=== PATIENT | male | born 1955 | race Caucasian/White ===

== ENCOUNTER 2020-12-20 12:13 | Inpatient (IN) ==
[2020-12-20] MEDS ORDERED: 0.9 % Sodium Chloride 1,000 ML IVC ONE (12:19)
[2020-12-20] MEDS ORDERED: *HR* Ticagrelor 90 MG TABLET PO ONE ×2 (12:26→19:00)
[2020-12-20] MEDS ORDERED: Aspirin 325 MG TABLET PO ONE (12:26)
[2020-12-20] MEDS ORDERED: *HR* Heparin 5,000 UNIT/ML VIAL IVP ONE ×2 (12:28→19:03)
[2020-12-20] MEDS ORDERED: *HR* Metoprolol 5 MG/5 ML VIAL IVP ONE (12:29)
[2020-12-20 12:33] LABS: Basophils % 0.2 %; Hematocrit 45.9 % (37.5-50.1); Hemoglobin 15.4 g/dL (12.9-16.9); Immature Granulocytes % 0.8 % (0-4); Lymphocytes # 0.4 K/mcL (0.6-4.6); Lymphocytes % 2.6 %; Mean Corpuscular HGB Conc 33.6 g/dL (31.6-35.5); Mean Corpuscular Hemoglobin 31.8 pg (28.0-33.3); Mean Corpuscular Volume 94.6 fL (83.0-100.0); Mean Platelet Volume 11.1 fL (9.4-12.4); Monocytes # 0.8 K/mcL (0.0-1.3); Monocytes % 5.3 %; Neutrophils # 14.5 K/mcL (1.6-8.9); Platelet Count 323 K/mcL (140-400); Red Blood Count 4.85 M/mcL (4.19-5.50); Red Cell Distribution Width 13.3 % (11.5-14.5); Segmented Neutrophils % 91.1 %; White Blood Count 15.9 K/mcL (4.3-11.1)
[2020-12-20 12:39] LABS: INR 1.3; Prothrombin Time 14.8 Seconds (9.4-12.1)
[2020-12-20 12:42] LABS: Activated Partial Thrombo Time 23.2 Seconds (26.0-36.0)
[2020-12-20 12:56] LABS: BUN/Creatinine Ratio 33 (6-26); Blood Urea Nitrogen 80 mg/dL (8-23); Calcium 9.4 mg/dL (8.6-10.3); Carbon Dioxide 11 mEq/L (23-29); Chloride 80 mEq/L (98-107); Magnesium 2.6 mg/dL (1.6-2.6); Potassium 4.2 mEq/L (3.5-5.1); Sodium 124 mEq/L (136-145); eGFR For African Americans 33 (> 60); eGFR For Non-African Americans 28 (> 60)
[2020-12-20] MEDS ORDERED: *HR* Midazolam HCl 2 MG/2 ML VIAL ONE (13:07)
[2020-12-20] MEDS ORDERED: Tirofiban 12.5 MG/250ML 12.5 MG/250 ML BAG ONE (13:25)
[2020-12-20 13:29] LABS: VBG HCO3 12 mEq/L (21-27); VBG PCO2 34 mmHg (41-51); VBG PH 7.15 pH Units (7.32-7.42); VBG PO2 93 mmHg (25-50)
[2020-12-20 13:31] LABS: Amphetamine Screen,Urine Negative ng/mL (Cutoff=1000); Barbiturate Screen,Urine Negative ng/mL (Cutoff=200); Benzodiazepines Screen,Urine Negative ng/mL (Cutoff=200); Cannabinoid Screen,Urine Negative ng/mL (Cutoff = 50); Cocaine Screen,Urine Negative ng/mL (Cutoff= 300); Opiate Screen,Urine Negative ng/mL (Cutoff=300); Phencyclidine Screen,Urine Negative ng/mL (Cutoff=25)
[2020-12-20] MEDS ORDERED: EPINEPHrine 1 MG/ML VIAL ONE ×3 (13:34→16:39)
[2020-12-20] MEDS ORDERED: *HR* Norepinephrine 4 MG/4 ML VIAL IVC ONE (13:36)
[2020-12-20] MEDS ORDERED: D5% in Water 250 ML ONE ×3 (13:36→15:52)
[2020-12-20 13:37] LABS: Acetaminophen < 10 mcg/mL (10-20); Creatine Kinase 457 Units/L (30-223); Ethanol < 10 mg/dL (Less than 10); Glucose 825 mg/dL (70-105); Osmolality,Calculated 322 (280-300); Salicylate < 2.5 mg/dL (15.0-30.0)
[2020-12-20] MEDS ORDERED: *HR* Phenylephrine 10 MG/ML VIAL ONE (13:50)
[2020-12-20] MEDS ORDERED: 0.9 % Sodium Chloride 1,000 ML ONE ×4 (13:56→15:36)
[2020-12-20] MEDS ORDERED: Heparin 1,000 UNITS/500 mL 500 ML ONE ×7 (13:57→16:26)
[2020-12-20] MEDS ORDERED: *HR* EPINEPHrine 1 MG/10 ML SYRINGE ONE (14:23)
[2020-12-20 14:35] LABS: ABG Base Excess -18 mEq/L (-2 to 3); ABG HCO3 14 mEq/L (21-27); ABG Oxygen Saturation 28 % (95-98); ABG PCO2 66 mmHg (35-45); ABG PH 6.93 pH Units (7.32-7.45); ABG PO2 30 mmHg (85-104); ABG TCO2 16 mEq/L (20-26)
[2020-12-20 14:36] LABS: ABG Base Excess -10 mEq/L (-2 to 3); ABG Chloride 98 mEq/L (98-107); ABG Glucose 689 mg/dL (60-95); ABG HCO3 21 mEq/L (21-27); ABG Ionized Calcium 0.94 mmol/L (1.15-1.35); ABG Oxygen Saturation 76 % (95-98); ABG PCO2 85 mmHg (35-45); ABG PH 7.01 pH Units (7.32-7.45); ABG PO2 62 mmHg (85-104); ABG TCO2 24 mEq/L (20-26)
[2020-12-20 14:58] LABS: ABG Base Excess -12 mEq/L (-2 to 3); ABG Chloride 97 mEq/L (98-107); ABG Glucose > 700 mg/dL (60-95); ABG HCO3 19 mEq/L (21-27); ABG Ionized Calcium 0.94 mmol/L (1.15-1.35); ABG Oxygen Saturation 76 % (95-98); ABG PCO2 79 mmHg (35-45); ABG PH 6.99 pH Units (7.32-7.45); ABG PO2 62 mmHg (85-104); ABG TCO2 22 mEq/L (20-26); Blood Gas Modality ASSIST CONTROL
[2020-12-20] MEDS ORDERED: EPINEPHrine 1 MG in D5% in Water 250 ML IVC SCH (15:15)
[2020-12-20] MEDS ORDERED: Norepinephrine 4 MG/254 ML IV.SOLN IVC SCH (15:15)
[2020-12-20] MEDS ORDERED: *HR* Heparin 10,000 UNIT/10 ML VIAL ONE ×2 (15:36→16:15)
[2020-12-20] MEDS ORDERED: Nitroglycerin 1,000 MCG/10 ML VIAL IV ONE (15:36)
[2020-12-20] MEDS ORDERED: ISOVUE-370 200 ML INFUS..BTL ONE (15:36)
[2020-12-20 15:44] LABS: ABG Base Excess -3 mEq/L (-2 to 3); ABG Chloride 95 mEq/L (98-107); ABG Glucose > 700 mg/dL (60-95); ABG HCO3 26 mEq/L (21-27); ABG Ionized Calcium 0.92 mmol/L (1.15-1.35); ABG Oxygen Saturation 94 % (95-98); ABG PCO2 74 mmHg (35-45); ABG PH 7.16 pH Units (7.32-7.45); ABG PO2 94 mmHg (85-104); ABG TCO2 28 mEq/L (20-26)
[2020-12-20] MEDS ORDERED: *HR* Dextrose 50 % in Water (Vial) 50 ML VIAL IVP PRN (17:57)
[2020-12-20] MEDS ORDERED: Insulin Regular, Human 100 UNIT/ML IV PRN (17:57)
[2020-12-20] MEDS ORDERED: 0.9 % Sodium Chloride 1,000 ML IVC SCH (18:00)
[2020-12-20] MEDS ORDERED: EPINEPHrine 5 MG in D5% in Water 250 ML IVC SCH (18:15)
[2020-12-20 18:32] LABS: VBG HCO3 20 mEq/L (21-27); VBG PCO2 64 mmHg (41-51); VBG PH 7.11 pH Units (7.32-7.42); VBG PO2 59 mmHg (25-50)
[2020-12-20 18:34] LABS: ABG Base Excess -8 mEq/L (-2 to 3); ABG HCO3 19 mEq/L (21-27); ABG Oxygen Saturation 89 % (95-98); ABG PCO2 45 mmHg (35-45); ABG PH 7.22 pH Units (7.32-7.45); ABG PO2 68 mmHg (85-104); ABG TCO2 20 mEq/L (20-26); Blood Gas VT 550 cc
[2020-12-20] MEDS ORDERED: Thiamine (B-1) 100 MG in 0.9 % Sodium Chloride 50 ML IVPB ONE (18:38)
[2020-12-20] MEDS ORDERED: Norepinephrine 8 MG in D5% in Water 250 ML IVC SCH (18:45)
[2020-12-20 19:00] LABS: Phosphorous 6.4 mg/dL (2.7-4.5); Potassium 3.3 mEq/L (3.5-5.1)
[2020-12-20] MEDS ORDERED: *HR* Heparin 5,000 UNIT/ML VIAL IVP PRN ×2 (19:03)
[2020-12-20] MEDS ORDERED: Heparin 25,000UNIT/250ML 1/2NS 25,000 UNIT/250 ML IV.SOLN IVC SCH (19:15)
[2020-12-20] MEDS ORDERED: Insulin Human Regular 100 UNIT in 0.9 % Sodium Chloride 100 ML IVC SCH (19:15)
[2020-12-20 19:28] VITALS: BP 73/41
[2020-12-20] MEDS ORDERED: 0.9 % Sodium Chloride w KCl 20 MEQ/1,000 ML MLS IVC SCH (19:30)
[2020-12-20] MEDS ORDERED: *HR* Etomidate 40 MG/20 ML VIAL IVP ONE (22:34)
[2020-12-20] MEDS ORDERED: *HR* Water for inj. (sterile) Vial 10 ML IV ONE (22:34)
[2020-12-20] MEDS ORDERED: *HR* Succinylcholine 200 MG/10 ML VIAL IVP ONE (22:34)
[2020-12-20] MEDS ORDERED: *HR* Rocuronium Bromide 50 MG/5 ML VIAL IVP ONE (22:34)
[2020-12-21] MEDS ORDERED: Hydrocortisone Sodium Succ 100 MG/2 ML VIAL IVP SCH
== END 2020-12-20 22:35 | disposition expired ==
LOC: EMEROOARM 12:13 → ICNU 14:45
PROVIDERS: ADMIT Internal Medicine Cardiovascular Disease; ATTEND Internal Medicine Cardiovascular Disease